=== PATIENT | male | born 1955 | race Caucasian/White ===

== ENCOUNTER → 2016-10-23 | Outpatient (CLI) | payer MEDICARE | END | disposition home or self-care (01) | LOC: GMAB 10:52 | PROVIDERS: ATTEND Family Medicine | DX: C61 Malignant neoplasm of prostate (principal) ==

== ENCOUNTER → 2017-02-28 | Outpatient (CLI) | payer MEDICARE ==
--- NOTE | 2017-02-28 13:32 | CT ---
EXAM DESCRIPTION: Abdomen/Pelvis w/wo Contrast: Computed Tomography. CLINICAL HISTORY: GEN ABD PN COMPARISON: None. TECHNIQUE: Spiral-axial scans at 5.0 mm intervals through the abdomen and pelvis before and after standard dose nonionic IV contrast. No oral contrast. Coronal and sagittal 2.0 mm reconstructions. 5 mm Delayed helical-axial scans, liver through the pubic symphysis. No adverse reactions. Total Exam DLP 3241.65 mGy - cm. This exam was performed according to our departmental CT dose-optimization program which includes automated exposure control, adjustment of the mA and/or kV according to patient size and/or use of iterative reconstruction technique; to reduce radiation dose to as low as reasonably achievable (ALARA). FINDINGS: Lung bases and pleura: Minimal pleural thickening abutting posterior right lower lobe, no effusion. Liver, Stomach, Spleen, Adrenal Glands: Long axis right lobe liver 19 cm. No focal lesions. Small paraesophageal gastric hernia. Other solid organs unremarkable. Pancreas, Gallbladder, Ducts: Gallbladder not seen. No fluid in the gallbladder fossa. Minimal dilation of the common bile duct. Pancreas negative. Kidneys and Ureters: 8.8 mm nonobstructing stone inferior left collecting system. 3 mm stone more inferior also nonobstructing. No radiodense stones in the right kidney. No hydronephrosis bilaterally. Perinephric stranding symmetric. 1.5 cm cyst posterior mid right kidney. Multiple small subcentimeter cortical cysts bilaterally. Ureters negative bilaterally. Mesentery: No free air or free fluid. No mesenteric stranding. Aorta: Atherosclerotic calcification aorta and common iliacs minimal. Outer caliber of the aorta unremarkable. Ectasia proximal iliacs bilaterally. Small Bowel: Gas in the proximal small bowel minimally distended with air-fluid levels more normal caliber and more fluid distally. Normal density surrounding fat. Terminal Ileum/Cecum: Normal caliber. Normal caliber of the appendix containing gas. Normal density of the surrounding fat. Colon: Normal caliber with multiple diverticula and minimal gas. Minimal redundancy of the sigmoid colon, no complications. Pelvic Organs: Prostate gland abutting the seminal vesicles and urinary bladder with minimal mass effect on the bladder. Surgical clips and calcifications. Minimal fluid in the anterior peritoneal reflection. Spine and Bony Pelvis: Spondylosis in the included thoracic spine. Bulging lumbar discs. No bone destruction. Abdominal Wall/Back Soft Tissues: Small fatty left inguinal hernia not containing bowel. IMPRESSION: 1. Minimal distention with air-fluid levels in the small bowel most likely bowel stasis unlikely bowel obstruction with no significant transition point. 2. Minimal hepatomegaly with normal enhancement and no focal lesions. No ascites. Small paraesophageal gastric hernia. 3. 8.8 mm nonobstructing stone lower collecting system left kidney with a adjacent smaller stone. No hydronephrosis. Multiple cortical cysts bilaterally largest is 1.5 cm mid right kidney. 4. Diverticulosis entire colon with numerous distally but no complications. Electronically signed by: Adryan Yadav MD 02/28/2017 1:31 PM [facility]
== END | disposition home or self-care (01) ==
LOC: CT 09:24
PROVIDERS: ATTEND Family Medicine
DX: R16.0 Hepatomegaly, not elsewhere classified (principal); K57.90 Diverticulosis of intestine, part unspecified, without perforation or abscess without bleeding; R10.84 Generalized abdominal pain

== ENCOUNTER → 2017-04-11 | Outpatient (CLI) | payer MEDICARE ==
--- NOTE | 2017-04-11 15:13 | CT ---
EXAM DESCRIPTION: Abdomen/Pelvis w/wo Contrast: Computed Tomography. CLINICAL HISTORY: RENAL STONE COMPARISON: None. TECHNIQUE: Spiral-axial scans at 5.0 mm intervals through the abdomen and pelvis, before and after IV contrast. Coronal and sagittal 2.0mm reconstructions. No oral contrast. Total Exam DLP: 3086.52 mGy-cm. This exam was performed according to our departmental CT dose-optimization program which includes automated exposure control, adjustment of the mA and/or kV according to patient size and/or use of iterative reconstruction technique; to reduce radiation dose to as low as reasonably achievable (ALARA). FINDINGS: Kidneys and Ureters: 2 radiodense stones in the inferior collecting system of the left kidney measuring 4.8 and 5.4 mm no evidence of obstruction. Small lateral cortical cyst left kidney. No radiodense stones in the right kidney. 1.5 cm cyst. No hydronephrosis or perinephric edema bilaterally. Ureters are negative. Pelvic Organs: No radiodense stones in the bladder. Prostate gland impresses on the base of the urinary bladder contains calcifications. Prostate gland measures 4.7 x 3.3 cm transverse and 2 mm craniocaudal. Lung and pleura bases: Negative. Liver, spleen, stomach, and adrenal glands: Small sliding hiatal hernia. Solid organs are unremarkable.. Pancreas, Gallbladder, Ducts: Minimal distal intrahepatic duct dilation. Gallbladder not seen. Minimal dilation of the common bile duct. Pancreas unremarkable. Aorta: Minimal atherosclerotic calcification. Small Bowel: Minimal gas and fluid but no distention. Terminal Ileum/Cecum: Normal caliber of the structures. Normal caliber of the appendix containing gas. Normal surrounding fatty density. Colon: Diverticula in the sigmoid colon which is minimally redundant. Diverticula also in the distal transverse and descending colon. Mesentery: Normal density with no free air or free fluid. No fatty stranding or fascial thickening. Spine and Bony Pelvis: Minimal lumbar dextroscoliosis. Abdominal Wall/Back Soft Tissues: Disc space narrowing and endplate ridging lower thoracic spine. Minimal posterior L5-S1 disc bulge. IMPRESSION: 1. At least 2 radiodense stones approximately 5 mm in diameter in the inferior collecting system of the left kidney. No ureteral stones. Smaller stone also in the left kidney. No hydronephrosis or hydroureter bilaterally. 2. Borderline enlarged prostate gland impressing on the base of the urinary bladder. 3. Diverticulosis in the colon but no evidence of complications. Small sliding gastric hiatal hernia. Spondylosis thoracic spine. Prior cholecystectomy. Electronically signed by: Adryan Yadav MD 04/11/2017 3:12 PM [facility]
== END ==
LOC: CT 07:55
PROVIDERS: ATTEND Family Medicine
DX: N20.9 Urinary calculus, unspecified (principal); N20.0 Calculus of kidney; N40.0 Benign prostatic hyperplasia without lower urinary tract symptoms; K57.30 Diverticulosis of large intestine without perforation or abscess without bleeding

== ENCOUNTER → 2017-07-22 | Outpatient (CLI) | payer MEDICARE | LOC: GMAB 11:54 | PROVIDERS: ATTEND Family Medicine | DX: D53.9 Nutritional anemia, unspecified (principal); C61 Malignant neoplasm of prostate; E29.9 Testicular dysfunction, unspecified; I10 Essential (primary) hypertension ==

== ENCOUNTER → 2018-02-28 | Outpatient (CLI) | payer MEDICARE ==
--- NOTE | 2018-02-28 10:38 | MRI ---
EXAM DESCRIPTION: Brain w/oContrast: MRI. CLINICAL HISTORY: HEADACHE COMPARISON: None. TECHNIQUE: Multiplanar, high-field MRI unit, multiple diffusion sequences, multiple conventional sequences without contrast. FINDINGS: Focal hyperintense FLAIR and T2-weighted signal in the periventricular white matter abutting the right frontal horn and ventricle.. No hemorrhage, no cerebral edema, no diffusion restriction.. Normal signal in the bilateral basal ganglia. No hemorrhage or diffusion restriction. Normal signal in the signal in the brainstem and cerebellar hemispheres. No hemorrhage, no cerebral edema, and no diffusion restriction.. Concordance of the diffusion and non-diffusion sequences with no diffusion restriction. Cortical sulci, ventricles, and other CSF spaces, and the subdural spaces are normally configured for patients age.. No effacement or displacement. No midline shift. No extra-axial hemorrhage. Normal flow signal void in the major vessels of the samish Millan, and the venous sinuses. IACs are symmetric bilaterally. Normal signal in the bilateral mastoid air cells. No mass effect in the bilateral cerebellopontine angles. Pituitary gland occupies the entire sella. Base of the cerebellar tonsils is above the foramen magnum. Minimal mucoperiosteal thickening in the paranasal sinuses.. The bony calvarium is intact. IMPRESSION: 1. Small lesion in the periventricular white matter abutting the right frontal horn is most likely result of chronic ischemia from cerebral microvascular disease or previous small infarct. No mass effect no hemorrhage, no diffusion restriction. 2. Minimal chronic sinusitis with no acute sinus abnormality. Electronically signed by: Adryan Yadav MD 02/28/2018 10:37 AM [employer]GER
== END ==
LOC: MRI 08:08
PROVIDERS: ATTEND Family Medicine
DX: G44.209 Tension-type headache, unspecified, not intractable (principal); J32.9 Chronic sinusitis, unspecified; G93.89 Other specified disorders of brain

== ENCOUNTER → 2018-03-27 | Outpatient (CLI) | payer MEDICARE ==
--- NOTE | 2018-03-27 16:47 | US ---
EXAM DESCRIPTION: Carotid Duplex: ULTRASOUND. CLINICAL HISTORY: 62 years Male Other specified symptoms and signs involving the circulatory and COMPARISON: None. TECHNIQUE: Transcutaneous scanning utilizing sexton-scale and Doppler modes to evaluate the bilateral carotid systems and vertebral arteries. Percentage of diameter of stenosis or no stenosis recorded will be based upon NASCET criteria. FINDINGS: Peak systolic/end diastolic (CM-Sec) CCA Right 90/21 Left 92/26. ICA Right proximal 58/22, mid 54/20. Left proximal 61/22, mid 54/23. Vertebral Right 43/15 Left 47/16. ECA (PS Only) Right 63 left 58. ICA/CCA peak systolic ratio: Right 0.6 Left 0.7 ICA/CCA end diastolic ratio: Right 1.1 Left 0.8 Vertebral arteries: antegrade flow. Comments: Atherosclerotic calcification bilateral common carotid bifurcations. Intimal wall thickening bilateral ICAs with bilateral spectral broadening in the proximal ICAs. IMPRESSION: 1. Doppler evaluation of the bilateral carotid systems and vertebral arteries shows no hemodynamically significant stenoses. 2. No significant amount of plaque seen in the carotid arteries bilaterally. Bilateral vertebral arteries showed antegrade-cephalad flow. Electronically signed by: Adryan Yadav MD 03/27/2018 4:45 PM [employer]
== END ==
LOC: US 08:03
PROVIDERS: ATTEND Family Medicine
DX: R09.89 Other specified symptoms and signs involving the circulatory and respiratory systems (principal)

== ENCOUNTER → 2019-10-14 | Outpatient (CLI) | payer MEDICARE ==
--- NOTE | 2019-10-14 15:26 | CT ---
EXAM DESCRIPTION: Abdoment/Pelvis w/o Contrast CLINICAL HISTORY: 63 years Male, URINARY CALCULUS TECHNIQUE: This exam was performed according to our departmental dose-optimization program, which includes automated exposure control, adjustment of the mA and/or kV according to patient size and/or use of iterative reconstruction technique. COMPARISON: April 11, 2017 FINDINGS: Evaluation limited by lack of intravenous contrast. Visualized lung bases are grossly unremarkable. The contours of the liver, spleen, pancreas and adrenal glands are unremarkable. Normal right renal contour. No hydronephrosis. No urolithiasis. Two left renal stones. The largest measuring 1.2 cm. No left hydronephrosis or urolithiasis. Unremarkable bladder. Moderate hiatal hernia. Scattered colonic diverticula without focal inflammatory change. No evidence of bowel obstruction. No findings to suggest appendicitis. Normal appendix. No adenopathy. No focal fluid collection. No free air. Normal caliber abdominal aorta. Mild diffuse atherosclerotic disease. No acute or suspicious osseous abnormality. Scattered degenerative changes present. IMPRESSION: Nonobstructing left nephrolithiasis. No hydronephrosis or obstructing ureteral stone. Electronically signed by: Natanael Quiles MD 10/14/2019 3:24 PM CDT
== END ==
LOC: CT 08:12
PROVIDERS: ATTEND Family Medicine
DX: N20.9 Urinary calculus, unspecified (principal); N20.0 Calculus of kidney

== ENCOUNTER → 2019-12-16 | Outpatient (CLI) | payer MEDICARE | LOC: GMAM 11:12 | PROVIDERS: ATTEND Family Medicine | DX: E53.8 Deficiency of other specified B group vitamins (principal); E55.9 Vitamin D deficiency, unspecified; I10 Essential (primary) hypertension; E78.2 Mixed hyperlipidemia ==